=== PATIENT | male | born 1975 | race Hispanic/Latino ===

== ENCOUNTER 2024-03-20 19:22 | Emergency (ER) | payer SELFPAY ==
[2024-03-20 21:24] LABS: Absolute Eosinophils 0.1 K/uL (0-0.5); Absolute Lymphocytes (CBC) 2.4 K/uL (0.7-4.9); Absolute Monocytes 0.7 K/uL (0.1-1.3); Absolute Neutrophil 5.1 K/uL (1.8-8.0); Basophils % 0.4 % (0-1.3); Eosinophils % 1.6 % (0-4.4); Hematocrit 46.4 % (39.6-49.0); Hemoglobin 16.2 g/dL (13.6-17.9); Lymphocytes % 28.8 % (15.3-44.8); MCH 31.3 pg (27.0-35.0); MCV 89.3 fL (80-100); MPV 8.8 fL (7.6-11.3); Monocytes % 8.2 % (3.3-12.3); Nucleated Red Blood Cells % 0.1 % (0-0); Platelets 183 thou/uL (152-406); RBC Red Blood Cell Count 5.19 M/uL (4.33-5.43)
[2024-03-20 21:24] LABS: Specific Gravity 1.016 (1.005-1.030); Sqamous Epithelial None Seen /HPF (None Seen); Urine Bacteria None Seen /HPF (<20); Urine Bilirubin NEGATIVE (Negative); Urine Blood Negative (Negative); Urine Clarity Turbid (Clear); Urine Color Light-Yellow (Yellow); Urine Crystals Unidentified Few /HPF (None Seen); Urine Culture Reflex Order NOT NEEDED; Urine Glucose NEGATIVE (Negative); Urine Ketones NEGATIVE (Negative); Urine Microscopic Reflex YN ORDER UMIC; Urine Mucus Slight /HPF (None Seen); Urine Nitrite NEGATIVE (Negative); Urine Protein NEGATIVE (Negative); Urine RBC <5 /HPF (None Seen); Urine Urobilinogen Normal (Normal); Urine WBC <5 /HPF (<5); Urine Yeast (Budding) Trace /HPF (None Seen); Urine pH 6.5 (5.0-7.0)
[2024-03-20 21:25] LABS: Protime INR 0.98
[2024-03-20 21:40] LABS: ALT/SGPT 64 U/L (16-61); AST/SGOT 20 U/L (15-37); Albumin/Globulin Ratio 1.1 (1.1-1.8); Alkaline Phosphatase 50 U/L (45-117); Anion Gap 7.6 mEq/L (5.0-15.0); BUN Blood Urea Nitrogen 18 mg/dL (7-18); Bicarbonate 29 mEq/L (21-32); Bilirubin Total 0.6 mg/dL (0.2-1.0); Globulin 3.7 g/dL (2.3-3.5); Glomerular Filtration Rate 93 ml/min (=/>90); Glucose Level 99 mg/dL (74-106); Magnesium 2.4 mg/dL (1.6-2.4); Potassium 3.6 mEq/L (3.5-5.1); Protein, Total 7.7 g/dL (6.4-8.2); Sodium Level 139 mEq/L (136-145); Troponin High Sensitivity 7.4 pg/mL (<58.9)
[2024-03-20 21:43] LABS: Bilirubin Direct < 0.2 mg/dL (0-0.2); Bilirubin Indirect, Calculated 0.4 mg/dL (0.2-0.8)
--- NOTE | 2024-03-20 21:44 | RAD REPORT ---
Procedure: Chest Single View HISTORY: Palpitations COMPARISON: none FINDINGS: The lungs appear clear of acute infiltrate. No significant pleural effusion noted. The heart is normal size. IMPRESSION: No acute abnormality is displayed.
--- NOTE | 2024-03-20 21:46 | RAD REPORT ---
EXAM: CT brain without contrast HISTORY: Headache COMPARISON: None TECHNIQUE: Multiple contiguous axial images were obtained and a CT of the brain without contrast.. Sagittal and coronal reconstruction performed. Automated exposure control, adjustment of the mA and/or kV according to patient size, and/or iterative reconstruction. Unless otherwise specified, incidental f indings do not require dedicated imaging follow-u FINDINGS: An intracranial bleed is not seen Ventricles are normal caliber No extra-axial fluid collection noted No significant hypodensity within the brain No fluid within the visualized sinuses or mastoids noted. IMPRESSION: No acute intracranial abnormality noted. If the patient's symptoms persist MRI of the brain would be recommended.
[2024-03-20] MEDS ORDERED: AMLODIPINE 10 MG TAB ONE (21:48)
[2024-03-20] MEDS ORDERED: HYDRALAZINE HCL 20 MG/ML VIAL ONE (21:48)
--- NOTE | 2024-03-20 22:19 | EDPHYS ---
Physician Documentation [facility] Name: Scotty Quevedo Age: 48 yrs Sex: Male : 1975 Arrival Date: 03/20/2024 Time: 19:22 Bed 20 Private MD: ED Physician Chau Hinson HPI: 03/20 20:05 This 48 yrs old Male presents to ER via Ambulatory with complaints of High cp Blood Pressure, Headache. 20:05 The patient has elevated blood pressure and discovered this at home, with a home cp device. Onset: The symptoms/episode began/occurred yesterday. 20:05 Associated signs and symptoms: Pertinent positives: headache, palpitations, Pertinent cp negatives: chest pain, dizziness, lightheadedness, nausea, vomiting, weakness. Severity of symptoms: in the emergency department the blood pressure is unchanged. Patient denies PMHX significant for HTN. Historical: - Allergies: 19:35 No Known Allergies; tm6 - PMHx: 19:35 None; tm6 - PSHx: 19:35 None; tm6 - Immunization history:: Flu vaccine is not up to date. - Infectious Disease History:: Denies. - Social history:: Smoking status: Patient denies any tobacco usage or history of. Patient uses alcohol, occasionally. ROS: 20:10 Constitutional: Negative for body aches, chills, fever, poor PO intake, cp 20:10 Eyes: Negative for injury, pain, redness, and discharge, cp 20:10 ENT: Negative for drainage from ear(s), ear pain, sore throat, difficulty swallowing, difficulty handling secretions, 20:10 Cardiovascular: Positive for palpitations, Negative for chest pain, edema, 20:10 Respiratory: Negative for cough, shortness of breath, wheezing, 20:10 Abdomen/GI: Negative for abdominal pain, vomiting, diarrhea, constipation, 20:10 Neuro: Positive for headache, Negative for altered mental status, weakness, 20:10 All other systems are negative, Exam: 20:15 Constitutional: The patient appears in no acute distress, alert, awake, comfortable, cp non-diaphoretic, non-toxic, well developed, well nourished, 20:15 Head/Face: Normocephalic, atraumatic. cp 20:15 Eyes: Periorbital structures: appear normal, Pupils: equal, round, and reactive to light and accomodation, Extraocular movements: intact throughout, Conjunctiva: normal, no exudate, no injection, Sclera: no appreciated abnormality, Lids and lashes: appear normal, bilaterally, 20:15 ENT: External ear(s): are unremarkable, Nose: is normal, Mouth: Lips: moist, Oral mucosa: pink and intact, moist, Posterior pharynx: Airway: no evidence of obstruction, patent, 20:15 Neck: ROM/movement: is normal, is supple, without pain, no range of motions limitations, 20:15 Chest/axilla: Inspection: normal, 20:15 Cardiovascular: Rate: normal, Rhythm: regular, Edema: is not appreciated, JVD: is not appreciated, 20:15 Respiratory: the patient does not display signs of respiratory distress, Respirations: normal, no use of accessory muscles, no retractions, labored breathing, is not present, Breath sounds: are clear throughout, no decreased breath sounds, no stridor, no wheezing, 20:15 Abdomen/GI: Exam negative for discomfort, distension, guarding, Inspection: abdomen appears normal, 20:15 Neuro: Orientation: to person, place \T\ time. Mentation: is normal, Cerebellar function: is grossly normal, Motor: moves all fours, strength is normal, Sensation: is normal, Gait: is steady, at a normal pace, without difficulty, 20:27 ECG was reviewed by the Attending Physician. Vital Signs: 19:32 BP 164 / 100; Pulse 69; Resp 20; Temp 98.7(TE); Pulse Ox 98% on R/A; MAP 117 mmHg; tm6 Weight 88.45 kg; Height 5 ft. 9 in. ; Pain 0/10; 20:56 BP 184 / 122; Pulse 71; Resp 18; Pulse Ox 100% ; kj2 21:53 BP 148 / 89; Pulse 64; Resp 18; Pulse Ox 100% on R/A; kj2 22:24 BP 150 / 88; Pulse 74; Resp 18; Temp 98; Pulse Ox 100% on R/A; kj2 19:32 Body Mass Index 28.80 (88.45 kg, 175.26 cm) 6 19:32 Pain Scale: Adult [facility] MDM: 19:47 Medical Screening Exam initiated cp 21:45 Differential diagnosis: hypertensive crisis, Malignant HTN, CVA, intracerebral cp hemorrhage, acute [place]. 22:16 Data reviewed: vital signs, nurses notes, lab test result(s), EKG, radiologic studies, cp CT scan, plain films, and as a result, I will discharge patient. 22:16 I considered the following discharge prescriptions or medication management in the emergency department Medications were administered in the Emergency Department. See AUG. 03/20 21:02 Order name: Basic Metabolic Panel; Complete Time: :52 cp 03/20 21:02 Order name: CBC with Diff; Complete Time: : cp 03/20 21:02 Order name: LFT's; Complete Time: :52 cp 03/20 21:02 Order name: Magnesium; Complete Time: : cp 03/20 21:02 Order name: PT-INR; Complete Time: :52 cp 03/20 21:02 Order name: Troponin HS; Complete Time: :52 cp 03/20 21:02 Order name: Urinalysis w/ reflexes; Complete Time: : cp 03/20 21:02 Order name: XRAY Chest (1 view); Complete Time: :52 cp 03/20 21:02 Order name: CT Head Brain wo Cont; Complete Time: : cp 03/20 20:05 Order name: EKG - Nurse/Tech; Complete Time: 20:25 cp 03/20 21:02 Order name: Cardiac monitoring; Complete Time: 21:25 cp 03/20 21:02 Order name: IV Saline Lock; Complete Time: 21:25 cp 03/20 21:02 Order name: Labs collected and sent; Complete Time: :25 cp 03/20 21:02 Order name: O2 Per Protocol; Complete Time: 21:25 cp 03/20 21:02 Order name: O2 Sat Monitoring; Complete Time: 21:25 cp EC:27 Rate is 70 beats/min. Rhythm is regular. NH interval is normal. QRS interval is cp prolonged at 114 msec. QT interval is normal. T waves are Inverted in lead aVR. Interpreted by me. Reviewed by me. Administered Medications: :52 Drug: hydrALAZINE IVP 10 mg IVP once Route: IVP; Site: left antecubital; kj2 22:26 Follow up: Response: No adverse reaction kj2 21:52 Drug: amLODIPine PO 10 mg PO once Route: PO; kj2 22:26 Follow up: Response: No adverse reaction kj2 Disposition Summary: 03/20/24 22:17 Discharge Ordered Notes: Location: Home cp Problem: new cp Symptoms: have improved cp Condition: Stable cp Diagnosis - Headache cp - Hypertensive heart disease without heart failure cp - Palpitations cp Followup: cp - With: Private Physician - When: 1 week - Reason: Recheck today's complaints Discharge Instructions: - Discharge Summary Sheet cp - General Headache Without Cause cp - Hypertension, Adult cp - Palpitations cp - Aspirin and Your Heart cp - Form - Blood Pressure Record Sheet cp - How to Take Your Blood Pressure cp Forms: - Medication Reconciliation Form cp - Antibiotic Education cp - Prescription Opioid Use cp - Patient Portal Instructions cp - Leadership Thank You Letter cp Prescriptions: - amlodipine 5 mg Oral tablet - take 1 tablet ORAL route 2 times per day; 60 tablet; Refills: 0, Product cp Selection Permitted Addendum: 03/22/2024 06:52 Co-signature as Attending Physician, Chau Hinson MD I agree with the assessment s p4 and plan of care. I reviewed the patient's care provided by the Advanced Practice Provider and agree with the diagnosis and treatment plan. Signatures: Dispatcher [employer] EDTX Brent Wu PA PA cp Potepalov, Sergey, MD MD sp4 Lawrence Manriquez RN RN tm6 Lachelle Robbins RN RN kj2 Corrections: (The following items were deleted from the chart) 03/20 21: 21:02 BASIC METABOLIC PANEL+C.LAB.BRZ ordered. EDTX EDMS 21: 21:02 CBC+H.LAB.BRZ ordered. EDMS EDMS 21: 21:02 HEPATIC FUNCTION+C.LAB.BRZ ordered. EDTX EDMS 21: 21:02 MAGNESIUM+C.LAB.BRZ ordered. EDTX EDMS 21: 21:02 PROTIME (+INR)+COAG.LAB.BRZ ordered. EDTX EDMS 21: 21:02 Troponin High Sensitivity+C.LAB.BRZ ordered. EDTX EDMS 21:02 21:02 Urinalysis+U.LAB.BRZ ordered. EDMS EDMS 21:03 21:03 Chest Single View+RAD.RAD.BRZ ordered. EDMS EDMS 21:03 21:03 Head Brain Wo Cont+CT.RAD.BRZ ordered. EDMS EDMS
--- NOTE | 2024-03-20 22:19 | ER ---
Nurse's Notes [facility] Name: Scotty Quevedo Age: 48 yrs Sex: Male : 1975 Arrival Date: 03/20/2024 Time: 19:22 Bed 20 Private MD: Diagnosis: Headache;Hypertensive heart disease without heart failure;Palpitations Presentation: 03/20 19:33 Chief complaint: Patient states: yesterday I had a headache, my blood pressure was tm6 high, and I felt my heart beating fast. Today I have not felt that way. Coronavirus screen: Client denies travel out of the [place] in the last 14 days. Ebola Screen: Patient negative for fever greater than or equal to 101.5 degrees Fahrenheit, and additional compatible Ebola Virus Disease symptoms Patient denies exposure to infectious person. Patient denies travel to an Ebola-affected area in the 21 days before illness onset. No symptoms or risks identified at this time. Initial Sepsis Screen: Does the patient meet any 2 criteria? No. Patient's initial sepsis screen is negative. Does the patient have a suspected source of infection? No. Patient's initial sepsis screen is negative. Risk Assessment: Do you want to hurt yourself or someone else? Patient reports no desire to harm self or others. Onset of symptoms was March 19, 2024. 19:33 Method Of Arrival: Ambulatory tm6 19:33 Acuity: CHARITY 3 tm6 Triage Assessment: 19:35 Headache History: The patient has had previous headaches and this one is similar to tm6 previous episodes. General: Appears in no apparent distress. Behavior is calm, cooperative. Pain: Denies pain. Complains of pain in head Pain currently is 0 out of 10 on a pain scale. at worst was 7 out of 10 on a pain scale. Quality of pain is described as aching, Pain began 1 day ago. Also complains of no other associated symptoms. EENT: No signs and/or symptoms were reported regarding the EENT system. Neuro: Level of Consciousness is awake, alert, obeys commands, Oriented to person, place, time, situation, Reports headache yesterday, no headache today. Cardiovascular: Patient's skin is warm and dry. Respiratory: Airway is patent Respiratory effort is even, unlabored, Respiratory pattern is regular, symmetrical. GI: No signs and/or symptoms were reported involving the gastrointestinal system. Abdomen is flat, non-distended. : No signs and/or symptoms were reported regarding the genitourinary system. Derm: No signs and/or symptoms reported regarding the dermatologic system. Musculoskeletal: No signs and/or symptoms reported regarding the musculoskeletal system. Historical: - Allergies: 19:35 No Known Allergies; tm6 - PMHx: 19:35 None; tm6 - PSHx: 19:35 None; tm6 - Immunization history:: Flu vaccine is not up to date. - Infectious Disease History:: Denies. - Social history:: Smoking status: Patient denies any tobacco usage or history of. Patient uses alcohol, occasionally. Screenin:10 [facility] ED Fall Risk Assessment (Adult) History of falling in the last 3 months, kj2 including since admission No falls in past 3 months (0 pts) Confusion or Disorientation No (0 pts) Intoxicated or Sedated No (0 pts) Impaired Gait No (0 pts) Mobility Assist Device Used No (0 pt) Altered Elimination No (0 pt) Score/Fall Risk Level 0 - 2 = Low Risk Maintained a safe environment, Hourly rounding (assess needs \T\ fall precautionary measures) done. Abuse screen: Denies threats or abuse. Denies injuries from another. Nutritional screening: No deficits noted. Tuberculosis screening: No symptoms or risk factors identified. Assessment: 20:09 General: Appears in no apparent distress. comfortable, Behavior is calm, cooperative. kj2 Pain: Complains of pain in headache yesterday Pain at worst was 9 out of 10 on a pain scale. Neuro: Level of Consciousness is awake, alert, obeys commands, Oriented to person, place, time, situation. Cardiovascular: Patient's skin is warm and dry. Respiratory: Airway is patent Respiratory effort is even, unlabored. GI: No signs and/or symptoms were reported involving the gastrointestinal system. : No signs and/or symptoms were reported regarding the genitourinary system. 20:55 Reassessment: Patient appears in no apparent distress at this time. Patient and/or kj2 family updated on plan of care and expected duration. Pain level reassessed. Patient is alert, oriented x 3, equal unlabored respirations, skin warm/dry/pink. 21:53 Reassessment: Patient appears in no apparent distress at this time. Patient and/or kj2 family updated on plan of care and expected duration. Pain level reassessed. 22:24 Reassessment: Patient appears in no apparent distress at this time. Patient and/or kj2 family updated on plan of care and expected duration. Pain level reassessed. Patient is alert, oriented x 3, equal unlabored respirations, skin warm/dry/pink. Vital Signs: 19:32 BP 164 / 100; Pulse 69; Resp 20; Temp 98.7(TE); Pulse Ox 98% on R/A; MAP 117 mmHg; tm6 Weight 88.45 kg; Height 5 ft. 9 in. ; Pain 0/10; 20:56 BP 184 / 122; Pulse 71; Resp 18; Pulse Ox 100% ; kj2 21:53 BP 148 / 89; Pulse 64; Resp 18; Pulse Ox 100% on R/A; kj2 22:24 BP 150 / 88; Pulse 74; Resp 18; Temp 98; Pulse Ox 100% on R/A; kj2 19:32 Body Mass Index 28.80 (88.45 kg, 175.26 cm) tm6 19:32 Pain Scale: Adult tm6 ED Course: 19:25 Patient arrived in ED. jj6 19:35 Triage completed. tm6 19:35 Arm band placed on right wrist. tm6 19:47 Brent Wu PA is PHCP. cp 19:47 Shmuel Faulkner MD is Attending Physician. cp 19:57 Lachelle Robbins, KOREY is Primary Nurse. kj2 20:20 Patient has correct armband on for positive identification. Bed in low position. Call kj2 light in reach. Provided Education on: call light. 20:21 No provider procedures requiring assistance completed. kj2 20:25 EKG done, by quality assurance lab technician. af3 21:00 Chau Hinson MD is Attending Physician. cp 21:06 Inserted saline lock: 20 gauge in left antecubital area, using aseptic technique. Blood kj2 collected. Flushed with 10 mL NS. 21:23 CT Head Brain wo Cont In Process Unspecified. EDMS 21:31 XRAY Chest (1 view) In Process Unspecified. EDMS 22:28 IV discontinued, intact, bleeding controlled, No redness/swelling at site. Pressure kj2 dressing applied. Administered Medications: 21:52 Drug: hydrALAZINE IVP 10 mg IVP once Route: IVP; Site: left antecubital; kj2 22:26 Follow up: Response: No adverse reaction kj2 21:52 Drug: amLODIPine PO 10 mg PO once Route: PO; kj2 22:26 Follow up: Response: No adverse reaction kj2 Medication: 20:21 VIS not applicable for this client. kj2 Outcome: 22:17 Discharge ordered by MD. puente 22:26 Condition: stable kj2 22:27 Discharge instructions given to patient, Instructed on discharge instructions, follow kj2 up and referral plans. medication usage, Demonstrated understanding of instructions, follow-up care, medications, Prescriptions given X 1, 22:37 Discharged to home ambulatory, kj2 22:37 Patient left the ED. kj2 Signatures: Dispatcher [employer] EDMS Brent Wu PA PA cp Jeffries, Jennifer jj6 Lawrence Manriquez RN RN tm6 Lachelle Robbins RN RN kj2 Lucie Calderon3 Corrections: (The following items were deleted from the chart) 20:34 20:23 BP 145 / 73; Pulse 68bpm; Resp 18bpm; Pulse Ox 98%; Temp 98F; kj2 kj2 20:35 20:22 IV discontinued, intact, bleeding controlled, No redness/swelling at site. kj2 Pressure dressing applied, kj2 20:35 20:22 Condition: stable kj2 kj2 20:35 20:22 Discharged to home ambulatory, with family, kj2 kj2 20:35 20:22 Discharge instructions given to patient, Instructed on discharge instructions, kj2 follow up and referral plans. medication usage, Demonstrated understanding of instructions, follow-up care, medications, Prescriptions given X 3, kj2
[2024-03-21 04:58] VITALS: O2SAT 100
[2024-03-21 05:01] VITALS: BP 150/88; TEMP 98
--- NOTE | 2024-03-24 13:01 | EKG ---
Test Date: 2024-03-20 Test Time: 20:23:28 [employer] Instructor: AF MEASUREMENT RESULTS: Intervals: Rate: 70 OH: 144 QRSD: 114 QT: 406 QTc: 438 [place]: P: 60 OH: 144 QRS: 7 T: 59 INTERPRETIVE STATEMENTS: Normal sinus rhythm Normal ECG No previous ECG available for comparison Electronically Signed On 03-24-24 12:52:53 CDT by Blayne Rosenbaum
== END 2024-03-20 22:37 | disposition home or self-care (01) ==
LOC: ER 19:22
DX: I11.9 Hypertensive heart disease without heart failure (principal); R00.2 Palpitations
CPT/HCPCS: 36415; 70450; 71045; 80048; 80076; 81001; 83735; 84484; 85025; 85610; 93005; 96374; 99284; J0360